=== PATIENT | female | born 1950 | race Caucasian/White ===

== ENCOUNTER 2016-08-08 22:27 | Emergency (ER) | payer BC ==
[~2016-08-08 22:27] MED LIST: LEVEMIR100 U/M; LEVEMIR100 U/ML; LEVOTHROID88 MCG; PRANDIN2 MG
[2016-08-09] MEDS ORDERED: COREG6.25 M1 PO ×2 (00:01)
== END 2016-08-09 01:35 ==
LOC: EDMED 22:27
DX: S93.401A Sprain of unspecified ligament of right ankle, initial encounter (principal); E11.9 Type 2 diabetes mellitus without complications; Z79.4 Long term (current) use of insulin; Z88.8 Allergy status to other drugs, medicaments and biological substances; X58.XXXA Exposure to other specified factors, initial encounter